=== PATIENT | female | born 1990 ===

== ENCOUNTER 2018-04-22 06:14 | Emergency (ER) | payer OTHER ==
[2018-04-22 07:25] VITALS: RESP 16
[2018-04-22] MEDS ORDERED: Sodium Chloride 0.9% 1,000 ML IV ONE (07:42)
--- NOTE | 2018-04-22 07:43 | C.PDOC ---
History Of Present Illness 28 year old female presents to ED for evaluation of persistent left pelvic and left lower quadrant abdominal pain for the last 3 days. Pt notes that pain is intermittent and localized. Denies fever, nausea, vomiting, diarrhea. LMP 7/. PERSIST L PELVIC/LLQ PAIN X 3 DAYS. INTERMIT LOCALIZED. NO FEVER, NVD. LMP 7/. PSH NEG EXAM MILD DIST NONTOXIC ABD +LLQ /PELVIC TEND SOFT NO R/G REMAINDER NEG MDM LLQ/PELVIC PAIN RO CYST/TORSION Time Seen by Provider: 04/22/18 07:21 Chief Complaint (Nursing): Abdominal Pain History Per: Patient History/Exam Limitations: no limitations Onset/Duration Of Symptoms: Days (3), Intermittent Episodes Current Symptoms Are (Timing): Still Present Location Of Pain/Discomfort: LLQ, Suprapubic Radiation Of Pain To:: None Quality Of Discomfort: "Pain" Associated Symptoms: denies: Nausea, Vomiting, Diarrhea Exacerbating Factors: None Alleviating Factors: None Recent travel outside of the [place]: No Additional History Per: Patient Past Medical History Reviewed: Historical Data, Nursing Documentation, Vital Signs Vital Signs: Last Vital Signs Temp 98.7 F 04/22/18 09:49 Pulse 70 04/22/18 09:49 Resp 16 04/22/18 09:49 BP 115/82 04/22/18 09:49 Pulse Ox 99 04/22/18 09:49 Family History: States: Unknown Family Hx - Social History Hx Alcohol Use: Yes Hx Substance Use: No - Immunization History Hx Tetanus Toxoid Vaccination: No Hx Influenza Vaccination: No Hx Pneumococcal Vaccination: No Review Of Systems Except As Marked, All Systems Reviewed And Found Negative. Constitutional: Negative for: Fever, Chills Cardiovascular: Negative for: Chest Pain, Palpitations Respiratory: Negative for: Cough, Shortness of Breath Gastrointestinal: Positive for: Abdominal Pain. Negative for: Nausea, Vomiting , Diarrhea, Constipation Genitourinary: Positive for: Pelvic Pain. Negative for: Dysuria, Frequency, Hematuria Musculoskeletal: Negative for: Back Pain Physical Exam - Physical Exam Appears: Non-toxic, Other (In mild distress) Skin: Normal Color, Warm, Dry Head: Atraumatic, Normacephalic Eye(s): bilateral: Normal Inspection Oral Mucosa: Moist Neck: Normal ROM, Supple Cardiovascular: Rhythm Regular, No Murmur Respiratory: Normal Breath Sounds, No Rales, No Rhonchi, No Wheezing Gastrointestinal/Abdominal: Soft, Tenderness (LLQ/pelvic), No Guarding, No Rebound Back: No CVA Tenderness Extremity: Normal ROM Neurological/Psych: Oriented x3, Normal Speech ED Course And Treatment - Laboratory Results Result Diagrams: 04/22/18 08:06 04/22/18 08:06 Urine POC: Negative O2 Sat by Pulse Oximetry: 99 (RA) Pulse Ox Interpretation: Normal Progress - Data Reviewed Data Reviewed: Lab, Diagnostic imaging, Old records Medical Decision Making Medical Decision Making: Plan: Blood work Urinalysis Pelvis/transvaginal ultrasound Toradol, Zofran, IV fluids LLQ/pelvic pain RO cyst/torsion Disposition Counseled Patient/Family Regarding: Studies Performed, Diagnosis, Need For Followup, Rx Given - Disposition Referrals: Non [facility] Provider, [Primary Care Provider] - Disposition: HOME/ ROUTINE Disposition Time: 10:52 Condition: IMPROVED Prescriptions: Acetaminophen with Codeine [Tylenol with Codeine No. 3 300 mg-30 mg] 1 tab PO Q6 PRN #12 tab PRN Reason: Pain, Moderate (4-7) Ibuprofen [Motrin] 600 mg PO Q6 #30 tab Instructions: Ovarian Cyst (DC) Forms: [facility] ([place]) - Clinical Impression Clinical Impression: Ovarian cyst, Pelvic pain - Scribe Statement The provider has reviewed the documentation as recorded by the Scribe KP All medical record entries made by the Scribe were at my direction and personally dictated by me. I have reviewed the chart and agree that the record accurately reflects my personal performance of the history, physical exam, medical decision making, and the department course for this patient. I have also personally directed, reviewed, and agree with the discharge instructions and disposition.
[2018-04-22] MEDS ORDERED: Sodium Chloride 0.9% 1,000 ML ONE (07:57)
[2018-04-22 08:16] LABS: BASO # 0.1 K/uL (0.0-0.2); BASO % 0.9 % (0.0-2.0); EOS # 0.2 K/uL (0.0-0.7); EOS % 3.1 % (0.0-4.0); HEMOGLOBIN 14.1 g/dL (11.0-16.0); LYMPH # 3.1 K/uL (1.0-4.3); LYMPH % 46.8 % (20.0-40.0); MEAN CELL VOLUME 88.6 fL (81.0-99.0); MEAN CORPUSCULAR HEMOGLOBIN 30.9 pg (27.0-31.0); MEAN CORPUSCULAR HGB CONC 34.9 g/dL (33.0-37.0); MEAN PLATELET VOLUME 7.7 fL (7.2-11.7); MONO # 0.4 K/uL (0.0-0.8); MONO % 6.5 % (0.0-10.0); NEUT # 2.8 K/uL (1.8-7.0); NEUT % 42.7 % (50.0-75.0); RBC 4.55 Mil/uL (3.80-5.20); RED CELL DISTRIBUTION WIDTH 12.9 % (11.5-14.5); WHITE BLOOD COUNT 6.6 K/uL (4.8-10.8)
[2018-04-22 08:23] LABS: SQUAMOUS EPITHIAL 2 /hpf (0-5); URINE BACTERIA RARE (<OCC); URINE BILIRUBIN NEGATIVE (NEGATIVE); URINE BLOOD 1+ (NEGATIVE); URINE CLARITY Hazy (Clear); URINE COLOR Yellow (YELLOW); URINE GLUCOSE (UA) NORMAL (Normal); URINE LEUKOCYTE ESTERASE TRACE Leu/uL (Negative); URINE PROTEIN NEGATIVE (NEGATIVE); URINE UROBILINOGEN NORMAL mg/dL (0.2-1.0)
[2018-04-22 08:28] LABS: ALB/GLOB RATIO 1.4 (1.0-2.1); ALT/SGPT 22 U/L (9-52); AST/SGOT 16 U/L (14-36); BLOOD UREA NITROGEN 9 mg/dL (7-17); CALCIUM 9.7 mg/dl (8.6-10.4); GFR AFRICAN-AMERICAN > 60; GFR NON-AFRICAN AMERICAN > 60; LIPASE 51 U/L (23-300)
--- NOTE | 2018-04-22 10:36 | US ---
Pelvic ultrasound History: Pelvic pain. Comparison: None available. Technique: Real-time sonography was performed through the pelvis utilizing transabdominal and transvaginal techniques. Findings: Uterus: 8.1 x 4.4 x 5.2 centimeters. Heterogeneous echotexture. Anteverted. Endometrium measures 9 millimeters. Echogenic foci suggestive for calcifications at the level of the endometrium measuring 3 x 2 x 4 millimeters and 2 x 2 x 2 millimeters respectively. No free fluid in the pelvic cul-de-sac. Right ovary: 3.4 x 1.9 x 3.4 centimeters. Normal flow. Left ovary: 4.2 x 3.9 x 4.1 centimeters. Normal flow. Complex cystic lesions with internal echogenic foci at the level of the left ovary/adnexa measuring 3.2 x 2.6 x 3.5 centimeters and 2.1 x 1.5 x 2.2 centimeters respectively. 4-6 week interval ultrasound followup is recommended. Trace free fluid by the left ovary. Impression: Complex left ovarian cysts/cystic lesions as described above measuring up to 3.5 and 2.2 centimeters respectively. 4-6 week interval sonographic followup would be helpful if clinically indicated. 3 and 2 millimeter echogenic foci at the level of the endometrium suggestive for calcifications. Clinical correlation. Trace free fluid by the left ovary.
[2018-04-22 11:29] VITALS: BP 121/80; PULSE 60; TEMP 98.4; O2SAT 100
== END 2018-04-22 11:49 | disposition home or self-care (01) ==
LOC: C.ER 06:14 → SUPCPDRO 06:14 → C.ER 11:49
DX: R10.2 Pelvic and perineal pain (principal); N83.202 Unspecified ovarian cyst, left side
CPT/HCPCS: 76830; 76856; 80053; 81001; 83690; 85025; 96374; 96375; 99285; J1885; J2405; J7030